=== PATIENT | female | born 1980 ===

== ENCOUNTER 2017-06-03 09:56 | Outpatient (CLI) | payer OTHER | END 2017-06-03 10:25 | disposition home or self-care (01) | LOC: RX STUDY 09:56 | DX: N97.1 Female infertility of tubal origin (principal) ==

== ENCOUNTER 2019-06-04 09:04 | Outpatient (CLI) | payer OTHER | END 2019-06-04 09:53 | disposition home or self-care (01) | LOC: NST 09:04 | DX: Z34.83 Encounter for supervision of other normal pregnancy, third trimester (principal) ==